=== PATIENT | female | born 1985 | race Caucasian/White ===

== ENCOUNTER 2024-06-10 21:50 | Inpatient (IN) ==
[2024-06-10 22:27] LABS: Basophils # (Auto) 0 K/mcL (0.00-0.30); Basophils % (Auto) 0 % (0.0-2.0); Eosinophils # (Auto) 0.08 K/mcL (0.00-0.70); Eosinophils % (Auto) 0.6 % (0.0-7.0); Hematocrit 27.7 % (34.1-44.9); Hemoglobin 8.6 g/dL (11.2-15.7); Lymphocytes # (Auto) 0.48 K/mcL (1.50-4.80); Lymphocytes % (Auto) 3.5 % (15.5-49.0); Mean Cell Volume 75.9 fL (80.0-100.0); Mean Platelet Volume 9.9 fL (8.8-12.5); Monocytes # (Auto) 0.47 K/mcL (0.10-0.90); Monocytes % (Auto) 3.4 % (1.0-12.0); Neutrophils % (Auto) 92.1 % (38.0-78.0); Platelet Count 190 K/mcL (140-440); RBC 3.65 M/mcL (3.59-5.38); Red Cell Distribution Width 15.8 % (11.5-14.5); WBC 13.8 K/mcL (4.5-11.0)
[2024-06-10 22:37] LABS: HCG,Serum Negative
[2024-06-10] MEDS: ACETAMINOPHEN 1,000 MG/100 ML BAG IV ONE (22:38)
[2024-06-10] MEDS: 0.9 % SODIUM CHLORIDE 1,000 ML IV ONE (22:39)
[2024-06-10 23:06] LABS: ALT/SGPT 66 U/L (<40); AST/SGOT 58 U/L (<32); Albumin 3.6 gm/dL (3.2-5.2); Albumin/Globulin Ratio 1.5 (1.0-2.3); Alkaline Phosphatase 90 U/L (39-117); Bilirubin,Total 0.4 mg/dL (0.1-1.0); Blood Urea Nitrogen 14 mg/dL (6-20); Calcium 8.1 mg/dL (8.6-10.4); Carbon Dioxide 21 mmol/L (22-30); Chloride 102 mmol/L (96-108); Globulin 2.4 gm/dL (2.2-3.7); Glomerular Filtration Rate 72; Glucose 176 mg/dL (70-105); Potassium 3.5 mmol/L (3.3-5.1); Sodium 134 mmol/L (133-145)
[2024-06-11 00:05] LABS: Appearance,Urine Clear (Clear); Bacteria,Urine Rare /hpf (0); Bilirubin,Urine Negative (Negative); Color,Urine Yellow; Glucose,Urine (UA) Negative (Negative); Ketones,Urine Negative (Negative); Leukocyte Esterase,Urine Moderate /uL (Negative); Nitrate,Urine Negative (Negative); Protein,Urine 100 mg/dL (Negative); Specific Gravity,Urine 1.015 (1.000-1.035); Urine Blood Moderate ery/mcL (Negative); Urine RBC 2 /hpf (0-3); Urine Squamous Epithelial Cell 16 /hpf (0-4); Urine WBC 120 /hpf (0-4); Urobilinogen,Urine Normal
[2024-06-11] MEDS: 0.9 % SODIUM CHLORIDE 1,000 ML IV SCH ×2 (01:33→09:12)
[2024-06-11] MEDS: morphine 4 MG/ML VIAL IV PRN (04:38)
[2024-06-11] MEDS: ONDANSETRON 4 MG/2 ML VIAL IV PRN (04:42)
[2024-06-11] MEDS: KETOROLAC 30 MG/ML VIAL IV PRN (07:09)
[2024-06-11] MEDS ORDERED: CIPROFLOXACIN 400 MG/200 ML BAG IV SCH (09:00)
[2024-06-11] MEDS: CIPROFLOXACIN 400 MG/200 ML BAG IV SCH (09:14)
[2024-06-11] MEDS: ACETAMINOPHEN 325 MG TABLET PO PRN (09:18)
[2024-06-11] MEDS: DOCUSATE SODIUM 100 MG CAPSULE PO SCH (09:22)
[2024-06-11] MEDS: SENNOSIDES 1 TABLET PO SCH (20:25)
[2024-06-12 06:19] LABS: Basophils # (Auto) 0 K/mcL (0.00-0.30); Basophils % (Auto) 0 % (0.0-2.0); Eosinophils # (Auto) 0.09 K/mcL (0.00-0.70); Hematocrit 29.4 % (34.1-44.9); Hemoglobin 8.9 g/dL (11.2-15.7); Lymphocytes % (Auto) 7.5 % (15.5-49.0); Mean Cell Volume 76.8 fL (80.0-100.0); Mean Corpuscular HGB Conc 30.3 g/dL (31.0-36.0); Mean Platelet Volume 9.6 fL (8.8-12.5); Monocytes # (Auto) 0.37 K/mcL (0.10-0.90); Monocytes % (Auto) 3.9 % (1.0-12.0); Neutrophils % (Auto) 86.9 % (38.0-78.0); Platelet Count 178 K/mcL (140-440); RBC 3.83 M/mcL (3.59-5.38); WBC 9.4 K/mcL (4.5-11.0)
[2024-06-12 06:42] LABS: ALT/SGPT 97 U/L (<40); AST/SGOT 59 U/L (<32); Albumin 3.3 gm/dL (3.2-5.2); Albumin/Globulin Ratio 1.1 (1.0-2.3); Alkaline Phosphatase 194 U/L (39-117); Bilirubin,Direct 1.5 mg/dL (<0.3); Bilirubin,Total 1.8 mg/dL (0.1-1.0); Blood Urea Nitrogen 11 mg/dL (6-20); Calcium 8.2 mg/dL (8.6-10.4); Carbon Dioxide 19 mmol/L (22-30); Chloride 104 mmol/L (96-108); Glomerular Filtration Rate 72; Glucose 91 mg/dL (70-105); Lactate Dehydrogenase 142 U/L (135-225); Phosphorous 2.2 mg/dL (2.5-4.5); Potassium 3.6 mmol/L (3.3-5.1); Sodium 135 mmol/L (133-145); Triglycerides 176 mg/dL (<150); Uric Acid 2.6 mg/dL (2.5-8.0)
[2024-06-12] MEDS: POLYETHYLENE GLYCOL 3350 17 GM PACKET PO SCH (15:43)
[2024-06-13 06:45] LABS: ALT/SGPT 56 U/L (<40); AST/SGOT 26 U/L (<32); Albumin 2.8 gm/dL (3.2-5.2); Albumin/Globulin Ratio 0.9 (1.0-2.3); Alkaline Phosphatase 206 U/L (39-117); Bilirubin,Direct 0.8 mg/dL (<0.3); Blood Urea Nitrogen 12 mg/dL (6-20); Calcium 8.3 mg/dL (8.6-10.4); Carbon Dioxide 19 mmol/L (22-30); Chloride 105 mmol/L (96-108); Glomerular Filtration Rate 82; Glucose 94 mg/dL (70-105); Lactate Dehydrogenase 152 U/L (135-225); Phosphorous 2.5 mg/dL (2.5-4.5); Potassium 3.6 mmol/L (3.3-5.1); Sodium 135 mmol/L (133-145); Triglycerides 186 mg/dL (<150)
[2024-06-13] MEDS: KETOROLAC 15 MG/ML VIAL IV PRN (08:35)
== END 2024-06-13 12:20 | disposition home or self-care (01) | DRG 689 ==
LOC: ED 21:50 → MEDSUR 06-11 01:07
PROVIDERS: ADMIT Internal Medicine; ATTEND Internal Medicine